=== PATIENT | female | born 1980 | race Caucasian/White ===

== ENCOUNTER 2016-05-12 08:38 | Emergency (ER) | payer SELFPAY ==
[~2016-05-12] VITALS: Ht 165.1 cm; Wt 68.0 kg
[~2016-05-12 08:38] MED LIST: HYDR-971 PO; SULF1TAB24 PO
[2016-05-12 08:40] VITALS: BP 142/82
[2016-05-12] MEDS ORDERED: HYDR-971 PO (08:57)
[2016-05-12] MEDS ORDERED: AMOX875T PO (08:57)
--- NOTE | 2016-05-12 08:58 | PHYS DOC ---
Past Medical History Past Medical History: Anxiety, Depression Past Surgical History: No Surgical History Alcohol Use: None Drug Use: Marijuana Adult General Chief Complaint Chief Complaint: DENTAL PROBLEM HPI HPI Patient is a 35 year old female with history of anxiety who presents with moderate right lower dental pain and abscess that began 3 days ago. Patient states she does not have a dentist. She states she has cavities that had feelings but they fell off. Patient denies any fever or trismus. Review of Systems Review of Systems Constitutional: Denies fever or chills [] Eyes: Denies change in visual acuity, redness, or eye pain [] HENT: Right lower gum dental pain and abscess Integument: Denies rash or skin lesions [] Neurologic: Denies headache, focal weakness or sensory changes [] Endocrine: Denies polyuria or polydipsia [] Allergies Allergies Allergies Coded Allergies Type Severity Reaction Last Updated Verified No Known Drug Allergies 11/19/14 No Physical Exam Physical Exam Constitutional: Well developed, well nourished, no acute distress, non-toxic appearance. [] HENT: Normocephalic, atraumatic, bilateral external ears normal, oropharynx moist, no oral exudates, nose normal. [] Right lower cheek with mild swelling consistent with a dental abscess no redness on the exterior cheek. Right lower gum with mild diffuse swelling, slight erythema noted on the right lower gum. No fluctuance noted on the right lower gum. Tooth #29, 30, 31, are decayed and broken. Eyes: PERRLA, EOMI, conjunctiva normal, no discharge. [] Neck: Normal range of motion, no tenderness, supple, no stridor. [] Skin: Warm, dry, no erythema, no rash. [] Back: No tenderness, no CVA tenderness. [] Extremities: No tenderness, no cyanosis, no clubbing, ROM intact, no edema. [] Neurologic: Alert and oriented X 3, normal motor function, normal sensory function, no focal deficits noted. [] Psychologic: Affect normal, judgement normal, mood normal. [] EKG EKG [] Radiology/Procedures Radiology/Procedures [] Course & Med Decision Making Course & Med Decision Making Pertinent Labs and Imaging studies reviewed. (See chart for details) Patient has right lower gum dental abscess, with no fluctuance from infected dental caries. She was instructed to follow-up with a dentist. Discharged with amoxicillin and hydrocodone. She was provided return precautions and discharged in stable condition. Prince Disclaimer Dragon Disclaimer This electronic medical record was generated, in whole or in part, using a voice recognition dictation system. Departure Departure Impression: Primary Impression: Dental abscess Additional Impressions: Infected dental caries Dentalgia Disposition: HOME, SELF-CARE Condition: STABLE Referrals: NO PCP (PCP) Follow-up with the dentist as soon as possible Patient Instructions: Dental Abscess Additional Instructions: You were seen for dental abscess. Complete your antibiotics. Take the prescribed pain medicines as ordered. Follow-up with the dentist as soon as possible. Come back to the ED if symptoms worsen or you have any concerning symptoms. Scripts Hydrocodone/Apap 5-325 (Oneida 5-325 Tablet)1 Each Tablet1-2 Tab PO Q4-6HRS #12 TAB Prov:MARIO FAUST APRN 05/12/16 Amoxicillin 875 Mg Tablet1 Tab PO BID #20 TAB Prov:MARIO FAUST APRN 05/12/16 Problem Qualifiers MARIO FAUST APRN May 12, 2016 08:58
== END 2016-05-12 09:12 | disposition home or self-care (01) ==
LOC: ER 08:38
DX: K04.7 Periapical abscess without sinus (principal); K02.9 Dental caries, unspecified; F41.9 Anxiety disorder, unspecified; F32.9 Major depressive disorder, single episode, unspecified; F12.10 Cannabis abuse, uncomplicated
CPT/HCPCS: 99283

== ENCOUNTER 2018-05-07 22:38 | Emergency (ER) | payer OTHER ==
[~2018-05-07] VITALS: Ht 165.1 cm; Wt 79.4 kg
[~2018-05-07 22:38] MED LIST changes: +AMOX875T PO; +HYDR-3164 PO; -HYDR-971 PO
--- NOTE | 2018-05-07 23:11 | PHYS DOC ---
Past Medical History Past Medical History: Anxiety, Depression Past Surgical History: No Surgical History Additional Past Surgical Histo: D/C, KIDNEYSTONE REMOVAL Smoking: Cigarettes Alcohol Use: None Drug Use: None, Marijuana Adult General Chief Complaint Chief Complaint: HYPOTENSION HPI HPI Patient is a 37 year old ~20 week female who presents via EMS with low blood pressure. She reports being told she looked pale by staff at [facility] after smoking a cigarette. She reports staff took her vitals and found her systolic BP in the 80s. She says she has felt fatigued this evening and has not been drinking her regular volume of water. She also reports taking Klonipin and 2 unknown muscle relaxants today. She reports no other symptoms. [] Review of Systems Review of Systems Constitutional: Endorses fatigue. Denies fever or chills [] Eyes: Denies change in visual acuity, redness, or eye pain [] HENT: Denies nasal congestion or sore throat [] Respiratory: Denies cough or shortness of breath [] Cardiovascular: No additional information not addressed in HPI [] GI: Denies abdominal pain, nausea, vomiting, bloody stools or diarrhea [] : Denies dysuria or hematuria [] Musculoskeletal: Denies back pain or joint pain [] Integument: Denies rash or skin lesions [] Neurologic: Denies headache, focal weakness or sensory changes [] Endocrine: Denies polyuria or polydipsia [] All other systems were reviewed and found to be within normal limits, except as documented in this note. Current Medications Current Medications Current Medications Medications (Trade) Dose Ordered Sig/Raji Start Time Stop Time Status Last Admin Dose Admin Ceftriaxone Sodium (Rocephin) 1 gm 1X ONCE 05/08/18 00:15 05/08/18 00:16 DC 05/08/18 00:17 1 GM Sodium Chloride 1,000 ml @ 1,000 mls/hr 1X ONCE 05/07/18 23:30 05/08/18 00:29 DC 05/07/18 23:40 1,000 MLS/HR Allergies Allergies Allergies Coded Allergies Type Severity Reaction Last Updated Verified No Known Drug Allergies 11/19/14 No Physical Exam Physical Exam Constitutional: Well developed, well nourished, no acute distress, non-toxic appearance. [] HENT: Normocephalic, atraumatic, bilateral external ears normal, oropharynx moist, no oral exudates, nose normal. [] Eyes: PERRLA, EOMI, conjunctiva normal, no discharge. [] Neck: Normal range of motion, no tenderness, supple, no stridor. [] Cardiovascular:Heart rate regular rhythm, no murmur [] Lungs & Thorax: Bilateral breath sounds clear to auscultation [] Abdomen: Bowel sounds normal, soft,gravid nontender Skin: Warm, dry, no erythema, no rash. [] Back: No tenderness, no CVA tenderness. [] Extremities: No tenderness, no cyanosis, no clubbing, ROM intact, no edema. [] Neurologic: Drowsy, oriented X 3, normal motor function, normal sensory function , no focal deficits noted. [] Psychologic: Affect normal, judgement normal, mood normal. [] Current Patient Data Vital Signs Vital Signs Date Time Temp Pulse Resp B/P (MAP) Pulse Ox O2 Delivery O2 Flow Rate FiO2 05/08/18 01:11 99 20 102/58 (73) 97 Room Air 05/07/18 22:38 97.7 97.7 Lab Values Laboratory Tests Test 05/07/18 23:38 05/07/18 23:44 White Blood Count 15.4 x10^3/uL (4.0-11.0) H Red Blood Count 3.41 x10^6/uL (3.50-5.40) L Hemoglobin 8.7 g/dL (12.0-15.5) L Hematocrit 27.8 % (36.0-47.0) L Mean Corpuscular Volume 82 fL (79-100) Mean Corpuscular Hemoglobin 25 pg (25-35) Mean Corpuscular Hemoglobin Concent 31 g/dL (31-37) Red Cell Distribution Width 21.7 % (11.5-14.5) H Platelet Count 614 x10^3/uL (140-400) H Neutrophils (%) (Auto) 66 % (31-73) Lymphocytes (%) (Auto) 24 % (24-48) Monocytes (%) (Auto) 5 % (0-9) Eosinophils (%) (Auto) 4 % (0-3) H Basophils (%) (Auto) 1 % (0-3) Neutrophils # (Auto) 10.2 x10^3uL (1.8-7.7) H Lymphocytes # (Auto) 3.7 x10^3/uL (1.0-4.8) Monocytes # (Auto) 0.8 x10^3/uL (0.0-1.1) Eosinophils # (Auto) 0.7 x10^3/uL (0.0-0.7) Basophils # (Auto) 0.1 x10^3/uL (0.0-0.2) Platelet Estimate Pending Urine Collection Type U cath Urine Color Yellow Urine Clarity Clear Urine pH 6.0 Urine Specific Temple 1.015 Urine Protein Negative mg/dL (NEG-TRACE) Urine Glucose (UA) Negative mg/dL (NEG) Urine Ketones (Stick) Negative mg/dL (NEG) Urine Blood Negative (NEG) Urine Nitrite Positive (NEG) Urine Bilirubin Negative (NEG) Urine Urobilinogen Dipstick 0.2 mg/dL (0.2 mg/dL) Urine Leukocyte Esterase Moderate (NEG) Urine RBC Occ /HPF (0-2) Urine WBC 11-20 /HPF (0-4) Urine Squamous Epithelial Cells Few /LPF Urine Bacteria Many /HPF (0-FEW) Urine Hyaline Casts Occasional /HPF Urine Mucus Mod /LPF Sodium Level 139 mmol/L (136-145) Potassium Level 3.8 mmol/L (3.5-5.1) Chloride Level 104 mmol/L (98-107) Carbon Dioxide Level 23 mmol/L (21-32) Anion Gap 12 (6-14) Blood Urea Nitrogen 11 mg/dL (7-20) Creatinine 0.5 mg/dL (0.6-1.0) L Estimated GFR (Cockcroft-Gault) 138.1 BUN/Creatinine Ratio 22 (6-20) H Glucose Level 99 mg/dL (70-99) Calcium Level 9.6 mg/dL (8.5-10.1) Total Bilirubin 0.1 mg/dL (0.2-1.0) L Aspartate Amino Transferase (AST) 11 U/L (15-37) L Alanine Aminotransferase (ALT) 14 U/L (14-59) Alkaline Phosphatase 67 U/L (46-116) Total Protein 6.2 g/dL (6.4-8.2) L Albumin 2.4 g/dL (3.4-5.0) L Albumin/Globulin Ratio 0.6 (1.0-1.7) L Urine Opiates Screen Neg (NEG) Urine Methadone Screen Neg (NEG) Urine Barbiturates Neg (NEG) Urine Phencyclidine Screen Neg (NEG) Urine Amphetamine/Methamphetamine Neg (NEG) Urine Benzodiazepines Screen Neg (NEG) Urine Cocaine Screen Neg (NEG) Urine Cannabinoids Screen Neg (NEG) Ethyl Alcohol Level < 10 mg/dL (0-10) Urine Ethyl Alcohol Neg (NEG) POC Urine HCG, Qualitative Hcg positive (Negative) Laboratory Tests 05/07/18 23:38 Laboratory Tests 05/07/18 23:38 EKG EKG [] Radiology/Procedures Radiology/Procedures [] Impressions: wet read u/s tech 17 weeks fht 160s grossly normal Course & Med Decision Making Course & Med Decision Making Pertinent Labs and Imaging studies reviewed. (See chart for details) Pt is a 37 year old ~20 week female with past medical history of anemia presents with fatigue and hypotension. Patient presentation and symptomes most consistent with dehydration vs. medication induced vs. anemia. heart rate 141-156 by doppler. labs look good possible uti, wbc and hb seem appropriate for status. pt bp is stable after iv fluids, 110's after recheck. pt ambulated from the er with a steady gait [] Dragon Disclaimer Dragon Disclaimer This electronic medical record was generated, in whole or in part, using a voice recognition dictation system. Departure Departure Impression: Primary Impression: Hypotension due to drugs Disposition: 01 HOME, SELF-CARE Condition: IMPROVED Referrals: NO PCP (PCP) Scripts Cephalexin (CEPHALEXIN) 500 Mg Tablet 1 TAB PO QID, #40 TAB Prov: KT PERRIN MD 05/08/18 KT PERRIN MD May 07, 2018 23:11
[2018-05-07] MEDS ORDERED: IV NORMAL SALINE 1000ML BAG 1,000 ML IV ONE (23:30)
[2018-05-07 23:51] LABS: BASO # 0.1 x10^3/uL (0.0-0.2); BASO % 1 % (0-3); BILIRUBIN,URINE NEGATIVE (NEG); CLARITY,URINE CLEAR; COLOR,URINE YELLOW; EOS # 0.7 x10^3/uL (0.0-0.7); EOS % 4 % (0-3); HEMATOCRIT 27.8 % (36.0-47.0); HEMOGLOBIN 8.7 g/dL (12.0-15.5); LYMPH # 3.7 x10^3/uL (1.0-4.8); LYMPH % 24 % (24-48); MEAN CORPUSCULAR HEMOGLOBIN 25 pg (25-35); MEAN CORPUSCULAR HGB CONC 31 g/dL (31-37); MEAN CORPUSCULAR VOLUME 82 fL (79-100); MONO # 0.8 x10^3/uL (0.0-1.1); MONO % 5 % (0-9); NEUT # 10.2 x10^3uL (1.8-7.7); NEUT % 66 % (31-73); NITRITE,URINE POSITIVE (NEG); PLATELET COUNT 614 x10^3/uL (140-400); PROTEIN,URINE NEGATIVE (NEG-TRACE); RED BLOOD COUNT 3.41 x10^6/uL (3.50-5.40); RED CELL DISTRIBUTION WIDTH 21.7 % (11.5-14.5); UROBILINOGEN,URINE 0.2 mg/dL (0.2 mg/dL); WHITE BLOOD COUNT 15.4 x10^3/uL (4.0-11.0)
[2018-05-07 23:55] LABS: BACTERIA,URINE MANY /HPF (0-FEW); RBC,URINE OCC /HPF (0-2)
[2018-05-07 23:56] LABS: HYALINE CASTS, URINE OCCASIONAL /HPF; SQUAMOUS EPITHELIAL CELL,UR FEW /LPF
[2018-05-07 23:59] LABS: BARBITURATES NEG (NEG); BENZODIAZEPINES NEG (NEG); CANNABINOIDS NEG (NEG); COCAINE NEG (NEG); METHADONE NEG (NEG); OPIATES NEG (NEG); PHENCYCLIDINE NEG (NEG)
[2018-05-08 00:08] LABS: CALCIUM 9.6 mg/dL (8.5-10.1); CREATININE 0.5 mg/dL (0.6-1.0); GFR 138.1; POTASSIUM 3.8 mmol/L (3.5-5.1)
[2018-05-08 00:11] LABS: ALBUMIN 2.4 g/dL (3.4-5.0); ALBUMIN/GLOBULIN RATIO 0.6 (1.0-1.7); TOTAL BILIRUBIN 0.1 mg/dL (0.2-1.0); TOTAL PROTEIN 6.2 g/dL (6.4-8.2)
[2018-05-08 00:14] LABS: AMPHETAMINE/METHAMPHETAMINE NEG (NEG)
[2018-05-08] MEDS ORDERED: cefTRIAXone IV Push 1 GM VIAL. IVP ONE (00:15)
[2018-05-08] MEDS ORDERED: CEPH500T PO (00:16)
[2018-05-08 01:11] VITALS: BP 102/58
--- NOTE | 2018-05-08 02:51 | RAD ---
CLINICAL HISTORY: Ultrasound, evaluate fetus, viability. COMPARISON: None available. TECHNIQUE: Transabdominal ultrasound of the uterus was performed. FINDINGS: There is a single live fetus in variable position. The placenta is anterior without placenta previa. The amniotic fluid is normal for gestational stage. The cardiac rate is 160 bpm. movement was identified. measurements are: BPD - 3.21 cm = 16 weeks 0 days HC - 12.94 cm = 16 weeks 4 days AC - 12 cm =17 weeks 5 day FL - 2.47 cm = 17 weeks 3 days The gestational size based on these measurements is 17 weeks 0 days. The estimated weight is 195+/- 29 gm. The estimated date of delivery is 10/16/2018. IMPRESSION: 1. Single live intrauterine gestation with a gestational age of 17 weeks 0 days. Electronically signed by: Osito Nails MD (05/08/2018 2:48 AM) [facility]
[2018-05-08 04:23] LABS: ANISOCYTOSIS MOD; PLT ESTIMATE INCREASED (ADEQUATE); POLYCHROMASIA SLIGHT
[2018-05-08 04:24] LABS: TARGET CELLS OCC
== END 2018-05-08 01:38 | disposition home or self-care (01) ==
LOC: ER 22:38
DX: I95.2 Hypotension due to drugs (principal); F41.9 Anxiety disorder, unspecified; F32.9 Major depressive disorder, single episode, unspecified; F17.210 Nicotine dependence, cigarettes, uncomplicated
CPT/HCPCS: 36415; 76815; 80053; 80307; 81001; 81025; 85025; 87086; 96361; 96374; 99284; G0480; J0696; J7030; 87186

== ENCOUNTER 2018-11-16 13:00 | Emergency (ER) | payer MEDICAID, OTHER ==
[~2018-11-16] VITALS: Ht 165.1 cm; Wt 81.6 kg
[~2018-11-16 13:00] MED LIST changes: +CEPH500T PO
[2018-11-16 13:43] VITALS: BP 144/77
[2018-11-16] MEDS ORDERED: CEPH500T PO (14:36)
[2018-11-16] MEDS ORDERED: HYDR-3164 PO (14:36)
[2018-11-16] MEDS ORDERED: SULF1TAB24 PO (14:36)
--- NOTE | 2018-11-16 14:36 | PHYS DOC ---
Past Medical History Past Medical History: Anxiety, Depression Past Surgical History: No Surgical History Additional Past Surgical Histo: D/C, KIDNEYSTONE REMOVAL Alcohol Use: None Drug Use: None, Marijuana Adult General Chief Complaint Chief Complaint: INSECT BITE HPI HPI Patient is a 38 year old female with history of anxiety, depression, abscesses, who presents to the ED today with an abscess on the left breast that began a week ago. Patient states she's been using warm compresses to the area. She states she thought it was an insect bite but has no recollection of any insects biting her breast. Denies being on any antibiotics in the last 90 days. Review of Systems Review of Systems Constitutional: Denies fever or chills [] Musculoskeletal: Denies back pain or joint pain [] Integument: Reports left breast abscess Neurologic: Denies headache, focal weakness or sensory changes [] All other systems were reviewed and found to be within normal limits, except as documented in this note. Allergies Allergies Allergies Coded Allergies Type Severity Reaction Last Updated Verified No Known Drug Allergies 11/19/14 No Physical Exam Physical Exam Constitutional: Well developed, well nourished, no acute distress, non-toxic appearance. [] Skin: Warm, dry, left breast at approximately 12 o'clock position with an area o f cellulitis approximately 8 x 8 cm, the center of this region has firmness approximately 3 x 3 cm, there is slight fluctuance to this forearm though patient will not let me touch the area due to pain. Nipple is not involved. There is no dimpling to the breast. There is no drainage from the breast. Back: No tenderness, no CVA tenderness. [] Extremities: No tenderness, no cyanosis, no clubbing, ROM intact, no edema. [] Neurologic: Alert and oriented X 3, normal motor function, normal sensory function, no focal deficits noted. [] Psychologic: Affect normal, judgement normal, mood normal. [] Current Patient Data Vital Signs Vital Signs Date Time Temp Pulse Resp B/P (MAP) Pulse Ox O2 Delivery O2 Flow Rate FiO2 11/16/18 13:43 98.0 100 18 144/77 (99) 97 Room Air 98.0 EKG EKG [] Radiology/Procedures Radiology/Procedures [] Course & Med Decision Making Course & Med Decision Making Pertinent Labs and Imaging studies reviewed. (See chart for details) This is a 38-year-old female patient with an abscess on the left breast, this is a 38-year-old female patient with an abscess on the left breast, I offered to drain it, patient declined. She is requesting antibiotics. She was given prescription for Bactrim and cephalexin, warm compresses recommended. Follow up with an [facility] in 1-2 weeks to ensure the infection has cleared up and there is no underlying mass or disease process. Dragon Disclaimer Dragon Disclaimer This electronic medical record was generated, in whole or in part, using a voice recognition dictation system. Departure Departure Impression: Primary Impression: Abscess of left breast Additional Impression: Cellulitis of breast Disposition: HOME, SELF-CARE Condition: STABLE Referrals: VANESSA NORIEGA JR, MD (PCP) follow up in on one to two weeks Patient Instructions: Abscess Additional Instructions: You were seen for an abscess with cellulitis of the left breast, we put you on antibiotics, ensure you complete them. Please follow-up with your primary care doctor in the next 1-2 weeks or the [facility] to be sure this infection is cleared out and there is no underlying disease process. Apply warm compresses to the breast twice a day. Scripts Hydrocodone/Apap 5-325 (NORCO 5-325 TABLET) 1 Each Tablet 1 TAB PO Q6-8HRS PRN for PAIN, #8 TAB Prov: MARIO FAUST APRN 11/16/18 Sulfamethoxazole/Trimethoprim (BACTRIM DS TABLET) 1 Each Tablet 1 TAB PO BID, #20 TAB Prov: MARIO FAUST APRN 11/16/18 Cephalexin (CEPHALEXIN) 500 Mg Tablet 1 TAB PO QID, #40 TAB Prov: MARIO FAUST APRN 11/16/18 Problem Qualifiers MARIO FAUST APRN Nov 16, 2018 14:36
== END 2018-11-16 14:46 | disposition home or self-care (01) ==
LOC: ER 13:00
DX: N61.1 Abscess of the breast and nipple (principal)
CPT/HCPCS: 99283

== ENCOUNTER 2019-04-17 16:07 | Emergency (ER) | payer MEDICAID ==
[~2019-04-17] VITALS: Ht 165.1 cm; Wt 81.0 kg
[2019-04-17 17:33] VITALS: BP 128/68
[2019-04-17] MEDS ORDERED: IBUP-1027 PO (17:55)
--- NOTE | 2019-04-17 17:56 | PHYS DOC ---
Past Medical History Past Medical History: Anxiety, Depression Past Surgical History: No Surgical History Additional Past Surgical Histo: D/C, KIDNEYSTONE REMOVAL Smoking Status: Current Every Day Smoker Alcohol Use: None Drug Use: None, Marijuana Adult General Chief Complaint Chief Complaint: HAND PROBLEM [facility] Patient is a 38 year old female who presents with pain and cramping in her R hand that started 4 days ago after she was helping move a friend and was moving a lot of clothes. The patient also states that she has had mild cramping in L hand. The patient has tried lidocaine cream, ibuprofen, and tylenol which she states has not helped. Denies additional symptoms. Complete ROS were reviewed and found to be within normal limits, except as documented in the [facility] Allergies Allergies Allergies Coded Allergies Type Severity Reaction Last Updated Verified No Known Drug Allergies 11/19/14 No Physical Exam Physical Exam Constitutional: Well developed, well nourished, no acute distress, non-toxic appearance. [] HENT: Normocephalic, atraumatic, bilateral external ears normal, oropharynx moist, no oral exudates, nose normal. [] Eyes: PERRLA, EOMI, conjunctiva normal, no discharge. [] Neck: Normal range of motion, no tenderness, supple, no stridor. [] Skin: Warm, dry, no erythema, no rash. [] Back: No tenderness, no CVA tenderness. [] Extremities: Tenderness on movement in R 1st digit, + po test. Neurologic: Alert and oriented X 3, normal motor function, normal sensory function, no focal deficits noted. [] Psychologic: Affect normal, judgement normal, mood normal. [] EKG EKG [] Radiology/Procedures Radiology/Procedures [] Course & Med Decision Making Course & Med Decision Making Pertinent Labs and Imaging studies reviewed. (See chart for details) The patient appears to have De quevein's Tenosynovitis from repetitive movements while helping friends move. The patient was place in thumb spica velcro splint and I will prescribe NSAIDs. Dragon Disclaimer Dragon Disclaimer This electronic medical record was generated, in whole or in part, using a voice recognition dictation system. Departure Departure Impression: Primary Impression: De Quervain's disease (radial styloid tenosynovitis) Disposition: 01 HOME, SELF-CARE Condition: STABLE Referrals: VANESSA NORIEGA JR, MD (PCP) Patient Instructions: De Quervain's Disease, De Quervain's Tenosynovitis-[facility]Med Additional Instructions: Thank you for visiting [facility]. We appreciate you trusting us with your care. If any additional problems come up don't hesitate to return to visit us. Please follow up with your primary care provider so they can plan additional care if needed and know about the problem that you had. If symptoms worsen come back to the Emergency Department. Any concerning symptoms that start such as chest pain, shortness of air, weakness or numbness on one side of the body, running high fevers or any other concerning symptoms return to the ER. Scripts Ibuprofen (IBUPROFEN) 400 Mg Tablet 400 MG PO PRN Q6HRS PRN for INFLAMMATION for 7 Days, #28 TAB Prov: PREETHI PERRY APRN 04/17/19 PREETHI PERRY APRN Apr 17, 2019 17:56
== END 2019-04-17 18:02 | disposition home or self-care (01) ==
LOC: ER 16:07
DX: M65.4 Radial styloid tenosynovitis [de Quervain] (principal); M79.641 Pain in right hand; F41.9 Anxiety disorder, unspecified; F32.9 Major depressive disorder, single episode, unspecified; F12.90 Cannabis use, unspecified, uncomplicated; F17.200 Nicotine dependence, unspecified, uncomplicated; Z98.890 Other specified postprocedural states
CPT/HCPCS: 29125; 99283

== ENCOUNTER 2019-06-02 04:33 | Emergency (ER) | payer MEDICAID ==
[~2019-06-02] VITALS: Ht 165.1 cm; Wt 83.9 kg
[~2019-06-02 04:33] MED LIST changes: +IBUP-1027 PO
--- NOTE | 2019-06-02 05:31 | PHYS DOC ---
Past Medical History Past Medical History: Anxiety, Bipolar, Depression Past Surgical History: No Surgical History Additional Past Surgical Histo: D/C, KIDNEYSTONE REMOVAL Smoking Status: Current Every Day Smoker Alcohol Use: None Drug Use: None, Marijuana Adult General Chief Complaint Chief Complaint: ANKLE PROBLEM HPI HPI 38-year-old female presents to the emergency department complaints of right ankle pain. Patient states she was walking down stairs missed the last step inverting her ankle. She states she denies any pop however is unable to tolerate weight at that time. Patient complains of pain. She denies any nausea, chest pain, abdominal pain, headache, visual change. Patient has no past medical history. Unable to bear weight as previously described. Nothing makes her pain better. Review of Systems Review of Systems Constitutional: Denies fever or chills [] Cardiovascular: No additional information not addressed in HPI [] GI: Denies abdominal pain, nausea, vomiting, bloody stools or diarrhea [] Musculoskeletal: right ankle pain, swelling Integument: Denies rash or skin lesions [] Neurologic: Denies headache, focal weakness or sensory changes [] All other systems were reviewed and found to be within normal limits, except as documented in this note. Current Medications Current Medications Current Medications Medications (Trade) Dose Ordered Sig/Raji Start Time Stop Time Status Last Admin Dose Admin Morphine Sulfate (Morphine Sulfate) 4 mg 1X ONCE 06/02/19 05:45 06/02/19 05:46 DC Ondansetron HCl (Zofran) 4 mg 1X ONCE 06/02/19 05:45 06/02/19 05:46 DC Allergies Allergies Allergies Coded Allergies Type Severity Reaction Last Updated Verified No Known Drug Allergies 11/19/14 No Physical Exam Physical Exam Constitutional: Well developed, well nourished, mild distress 2/2 pain, non- toxic appearance. [] HENT: Normocephalic, atraumatic, bilateral external ears normal, oropharynx moist, no oral exudates, nose normal. [] Cardiovascular:Heart rate regular rhythm, no murmur [] Lungs & Thorax: Bilateral breath sounds clear to auscultation [] Skin: Warm, dry, no erythema, no rash. [] Extremities: TTP right ankle, obvious swelling appreciated, + edema [] Neurologic: Alert and oriented X 3, no focal deficits noted. [] Psychologic: Affect normal, judgement normal, mood normal. [] Current Patient Data Vital Signs Vital Signs Date Time Temp Pulse Resp B/P (MAP) Pulse Ox O2 Delivery O2 Flow Rate FiO2 06/02/19 04:49 98.1 115 16 149/108 (122) 96 Room Air 98.1 EKG EKG [] Radiology/Procedures Radiology/Procedures [facility] [address] [place] [address] IMAGING REPORT Signed PATIENT: PHYLLIS MONTOYA SACCOUNT: [id number] : 1980 LOCATION: ER AGE: 38 SEX: F EXAM STATUS: REG ER ORD. PHYSICIAN: MELANIE SHAIKH MD REASON: inverted ankle with swelling, obvious deformity, UNABLE TO FLEX FOOT. PROCEDURE: ANKLE RIGHT 3V ANKLE RIGHT 3V DATE: 06/02/2019 5:31 AM INDICATION: Twisted ankle, pain and swelling COMPARISON: None. FINDINGS: Bones: There is no evidence of acute fracture or dislocation. Joints: The ankle mortise is congruent. No widening of the distal tibiofibular syndesmosis. Ankle joint effusion. Miscellaneous: Lateral soft tissue swelling IMPRESSION: No acute fracture. Electronically signed by: Saulo Moya MD (06/02/2019 5:53 AM) [id number] DICTATED and SIGNED BY: SAULO MOYA MD DATE: 06/02/19 0553 [] Course & Med Decision Making Course & Med Decision Making Pertinent Labs and Imaging studies reviewed. (See chart for details) []38-year-old female presents to the emergency department complaints of right ankle pain. Patient states she was walking down stairs missed the last step inverting her ankle. She states she denies any pop however is unable to tolerate weight at that time. Patient complains of pain. She denies any nausea, chest pain, abdominal pain, headache, visual change. Patient has no past medical history. Unable to bear weight as previously described. Nothing makes her pain better. No acute fracture identified Recommend follow up with PCP/ortho as outpatient [place] rx provided Vince and Crutches Prince Disclaimer Prince Disclaimer This electronic medical record was generated, in whole or in part, using a voice recognition dictation system. Departure Departure Impression: Primary Impression: High ankle sprain of right lower extremity Disposition: HOME, SELF-CARE Condition: STABLE Referrals: VANESSA NORIEGA JR, MD (PCP) Patient Instructions: Ankle Sprain Additional Instructions: Recommend Nroco as needed Recommend Motrin as needed Vince/Crutches provided Ice and elevation Follow up with PCP as outpatient Scripts Hydrocodone/Apap 5-325 (NORCO 5-325 TABLET) 1 Each Tablet 1 TAB PO PRN Q6HRS PRN for PAIN, #10 TAB 0 Refills Prov: MELANIE SHAIKH MD 06/02/19 Ibuprofen (Ibuprofen) 800 Mg Tablet 800 MG PO TID PRN for PAIN, #30 TAB Prov: MELANIE SHAIKH MD 06/02/19 Problem Qualifiers Primary Impression: High ankle sprain of right lower extremity Encounter type: initial encounter Qualified Codes: S93.431A - Sprain of tibiofibular ligament of right ankle, initial encounter MELANIE SHAIKH MD Jun 02, 2019 05:31
[2019-06-02] MEDS ORDERED: ONDANSETRON PF 4 MG/2 ML VIAL. IVP ONE (05:45)
[2019-06-02] MEDS ORDERED: MORPHINE SULFATE 4 MG/ML VIAL. IV ONE (05:45)
--- NOTE | 2019-06-02 05:56 | RAD ---
ANKLE RIGHT 3V DATE: 06/02/2019 5:31 AM INDICATION: Twisted ankle, pain and swelling COMPARISON: None. FINDINGS: Bones: There is no evidence of acute fracture or dislocation. Joints: The ankle mortise is congruent. No widening of the distal tibiofibular syndesmosis. Ankle joint effusion. Miscellaneous: Lateral soft tissue swelling IMPRESSION: No acute fracture. Electronically signed by: Rod Moya MD (06/02/2019 5:53 AM) [id number]
[2019-06-02 05:57] VITALS: BP 131/91
[2019-06-02] MEDS ORDERED: IBUP800T19 PO (06:07)
[2019-06-02] MEDS ORDERED: HYDR-3164 PO (06:07)
== END 2019-06-02 06:17 | disposition home or self-care (01) ==
LOC: ER 04:33
DX: S93.431A Sprain of tibiofibular ligament of right ankle, initial encounter (principal); F31.9 Bipolar disorder, unspecified; F17.200 Nicotine dependence, unspecified, uncomplicated; W10.8XXA Fall (on) (from) other stairs and steps, initial encounter; Y93.01 Activity, walking, marching and hiking; Y92.89 Other specified places as the place of occurrence of the external cause; Y99.8 Other external cause status
CPT/HCPCS: 73610; 96374; 96375; 99284; J2270; J2405

== ENCOUNTER 2019-08-02 14:51 | Emergency (ER) | payer MEDICAID ==
[~2019-08-02] VITALS: Ht 165.1 cm; Wt 83.6 kg
[~2019-08-02 14:51] MED LIST changes: +IBUP800T19 PO
[2019-08-02] MEDS ORDERED: HYDROcodone/APAP 5/325MG 1 TAB TABLET PO ONE (15:15)
--- NOTE | 2019-08-02 15:23 | PHYS DOC ---
Past Medical History Past Medical History: Anxiety, Bipolar, Depression Past Surgical History: Tubal ligation, Other Additional Past Surgical Histo: D/C, KIDNEYSTONE REMOVAL Smoking Status: Current Every Day Smoker Additional Information: 03/14 ppd Alcohol Use: None Drug Use: None, Marijuana General Adult EDM: Chief Complaint: WRIST PAIN HPI: HPI: Patient is a 38 year old female who presents with with 2 days of left hand, wrist and knee swelling with stabbing pain. Denies injury. She states about month prior her right wrist swelled up and this is how it felt also. She states she has been taking naproxen and tylenol at home without relief. Denies numbness or tingling, skin color or temperature change in limb. Rates pain a 11/20. Review of Systems: Review of Systems: Musculoskeletal: Denies back pain. Left wrist and knee joint pain. [] Heart Score: Risk Factors: Risk Factors: DM, Current or recent (<one month) smoker, HTN, HLP, family history of CAD, obesity. Risk Scores: Score 0 - 3: 2.5% MACE over next 6 weeks - Discharge Home Score 4 - 6: 20.3% MACE over next 6 weeks - Admit for Clinical Observation Score 7 - 10: 72.7% MACE over next 6 weeks - Early Invasive Strategies Current Medications: Current Medications Medications (Trade) Dose Ordered Sig/Raji Start Time Stop Time Status Last Admin Dose Admin Acetaminophen/ Hydrocodone Bitart (Lortab 5/325) 1 tab 1X ONCE 08/02/19 15:15 08/02/19 15:16 DC Allergies: Allergies: Allergies Coded Allergies Type Severity Reaction Last Updated Verified No Known Drug Allergies 08/02/19 No Physical Exam: PE: Constitutional: Well developed, well nourished, no acute distress, non-toxic appearance. [] HENT: Normocephalic, atraumatic, bilateral external ears normal, oropharynx moist, no oral exudates, nose normal. [] Eyes: PERRLA, EOMI, conjunctiva normal, no discharge. [] Neck: Normal range of motion, no tenderness, supple, no stridor. [] Cardiovascular:Heart rate regular rhythm, no murmur [] Lungs & Thorax: Bilateral breath sounds clear to auscultation [] Abdomen: Bowel sounds normal, soft, no tenderness, no masses, no pulsatile masses. [] Skin: Warm, dry, no erythema, no rash. [] Back: No tenderness, no CVA tenderness. [] Extremities: Left lateral wrist into hand tenderness, no cyanosis, no clubbing, ROM intact, Left hand and knee 2-3+ edema. [] Neurologic: Alert and oriented X 3, normal motor function, normal sensory function, no focal deficits noted. [] Psychologic: Affect normal, judgement normal, mood normal. [] Current Patient Data: Vital Signs: Vital Signs Date Time Temp Pulse Resp B/P (MAP) Pulse Ox O2 Delivery O2 Flow Rate FiO2 08/02/19 14:55 97.9 102 16 148/82 (104) 99 Room Air 97.9 EKG: EKG: [] Radiology/Procedures: Radiology/Procedures: [] Impression: [address] [address] IMAGING REPORT Signed PATIENT: PHYLLIS MONTOYA: [id number] : 1980 LOCATION: ER AGE: 38 SEX: F EXAM STATUS: REG ER ORD. PHYSICIAN: LINDSEY GORDON APRN REASON: pain and swelling left joints, no known injury PROCEDURE: HAND LEFT 3V Exam: Left hand 3 views INDICATION: Pain and swelling left joints TECHNIQUE: Frontal, lateral and oblique views of the left and Comparisons: None FINDINGS: Mild soft tissue swelling overlying the MCP joints. No acute fractures. Joint spaces are well-maintained. Bone mineralization is normal. IMPRESSION: Mild soft tissue swelling overlying the MCP joints without underlying acute osseous abnormality identified. Electronically signed by: Anselmo Roy MD (08/02/2019 3:26 PM) [id number] DICTATED and SIGNED BY: ANSELMO ROY MD DATE: 08/02/[address] [address] IMAGING REPORT Signed PATIENT: PHYLLIS MONTOYA: [id number] : 1980 LOCATION: ER AGE: 38 SEX: F EXAM STATUS: REG ER ORD. PHYSICIAN: LINDSEY GORDON APRN REASON: pain and swelling left joints, no known injury PROCEDURE: KNEE LEFT 4V Exam: Left knee 3 views INDICATION: Pain and swelling TECHNIQUE: Frontal, lateral and oblique views of the left knee Comparisons: None FINDINGS: Bone mineralization is normal. No acute or healed fractures. Mild suprapatellar effusion. Joint spaces are well-maintained. IMPRESSION: Mild suprapatellar effusion without underlying osseous abnormality identified. Electronically signed by: Anselmo Roy MD (08/02/2019 3:32 PM) [id number] DICTATED and SIGNED BY: ANSELMO ROY MD DATE: 08/02/19 1536 [facility] [address] [place] [address] IMAGING REPORT Signed PATIENT: PHYLLIS MONTOYA SACCOUNT: [id number] : 1980 LOCATION: ER AGE: 38 SEX: F EXAM STATUS: REG ER ORD. PHYSICIAN: LINDSEY GORDON APRN REASON: pain and swelling left joints, no known injury PROCEDURE: WRIST 3V LEFT Exam: Left wrist 3 views INDICATION: Pain and swelling left joint TECHNIQUE: Frontal, lateral and oblique views of the left wrist Comparisons: None FINDINGS: Bone mineralization is normal. No acute or healed fractures. Mild soft tissue swelling overlying the dorsal aspect of the wrist and metacarpals. Joint space is well-maintained. IMPRESSION: Soft tissue swelling along the dorsal aspect of the hand and wrist. No underlying osseous abnormality identified. Electronically signed by: Anselmo Roy MD (08/02/2019 3:29 PM) [id number] DICTATED and SIGNED BY: ANSELMO ROY MD DATE: 08/02/19 1527 Course & Med Decision Making: Course & Med Decision Making Pertinent Labs and Imaging studies reviewed. (See chart for details) Left hand, wrist and knee joint swelling and pain. No redness. No laxity to any joint. Radial and pedal pulse present. No bruising or deformity. Skin pink warm and dry. Cap refill less than 3 seconds. [] Dragon Disclaimer: Dragany Disclaimer: This electronic medical record was generated, in whole or in part, using a voice recognition dictation system. Departure Departure Impression: Primary Impression: Joint swelling Disposition: 01 HOME, SELF-CARE Condition: STABLE Referrals: VANESSA NORIEGA JR, MD (PCP) Patient Instructions: Arthritis, Nonspecific Additional Instructions: Follow up with primary care as soon as possible. Take medications as prescribed and with food. Drink plenty of fluids. Scripts Ibuprofen (IBUPROFEN) 600 Mg Tablet 600 MG PO PRN Q6HRS PRN for INFLAMMATION, #20 TAB Prov: LINDSEY GORDON APRN 08/02/19 Hydrocodone/Apap 5-325 (NORCO 5-325 TABLET) 1 Each Tablet 1 TAB PO PRN Q6HRS PRN for PAIN, #12 TAB 0 Refills Prov: LINDSEY GORDON APRN 08/02/19 Methylprednisolone (MEDROL) 4 Mg Tab.ds.pk 1 PKG PO UD, #1 PKG Prov: LINDSEY GORDON APRN 08/02/19 LINDSEY GORDON APRN August 02, 2019 15:23
--- NOTE | 2019-08-02 15:29 | RAD ---
Exam: Left hand 3 views INDICATION: Pain and swelling left joints TECHNIQUE: Frontal, lateral and oblique views of the left and Comparisons: None FINDINGS: Mild soft tissue swelling overlying the MCP joints. No acute fractures. Joint spaces are well-maintained. Bone mineralization is normal. IMPRESSION: Mild soft tissue swelling overlying the MCP joints without underlying acute osseous abnormality identified. Electronically signed by: Anselmo Alfredo MD (08/02/2019 3:26 PM) [id number]
--- NOTE | 2019-08-02 15:32 | RAD ---
Exam: Left wrist 3 views INDICATION: Pain and swelling left joint TECHNIQUE: Frontal, lateral and oblique views of the left wrist Comparisons: None FINDINGS: Bone mineralization is normal. No acute or healed fractures. Mild soft tissue swelling overlying the dorsal aspect of the wrist and metacarpals. Joint space is well-maintained. IMPRESSION: Soft tissue swelling along the dorsal aspect of the hand and wrist. No underlying osseous abnormality identified. Electronically signed by: Anselmo Alfredo MD (08/02/2019 3:29 PM) [id number]
--- NOTE | 2019-08-02 15:34 | RAD ---
Exam: Left knee 3 views INDICATION: Pain and swelling TECHNIQUE: Frontal, lateral and oblique views of the left knee Comparisons: None FINDINGS: Bone mineralization is normal. No acute or healed fractures. Mild suprapatellar effusion. Joint spaces are well-maintained. IMPRESSION: Mild suprapatellar effusion without underlying osseous abnormality identified. Electronically signed by: Anselmo Alfredo MD (08/02/2019 3:32 PM) [id number]
[2019-08-02 15:44] LABS: BASO # 0.2 x10^3/uL (0.0-0.2); BASO % 1 % (0-3); EOS # 0.3 x10^3/uL (0.0-0.7); EOS % 2 % (0-3); HEMATOCRIT 35.3 % (36.0-47.0); HEMOGLOBIN 11.5 g/dL (12.0-15.5); LYMPH % 14 % (24-48); MEAN CORPUSCULAR HEMOGLOBIN 26 pg (25-35); MEAN CORPUSCULAR HGB CONC 33 g/dL (31-37); MEAN CORPUSCULAR VOLUME 80 fL (79-100); MONO # 0.6 x10^3/uL (0.0-1.1); MONO % 5 % (0-9); NEUT # 10.8 x10^3/uL (1.8-7.7); NEUT % 78 % (31-73); PLATELET COUNT 712 x10^3/uL (140-400); RED CELL DISTRIBUTION WIDTH 17.6 % (11.5-14.5); WHITE BLOOD COUNT 13.9 x10^3/uL (4.0-11.0)
[2019-08-02 15:52] LABS: BILIRUBIN,URINE NEGATIVE (NEG); CLARITY,URINE CLEAR; COLOR,URINE YELLOW; NITRITE,URINE NEGATIVE (NEG); PH,URINE 6.5 (<5.0-8.0); PROTEIN,URINE NEGATIVE (NEG-TRACE); UROBILINOGEN,URINE 0.2 mg/dL (0.2 mg/dL)
[2019-08-02 15:54] LABS: CALCIUM 9.4 mg/dL (8.5-10.1); CREATININE 0.6 mg/dL (0.6-1.0); GFR 111.3; POTASSIUM 4.2 mmol/L (3.5-5.1)
[2019-08-02 15:57] LABS: BARBITURATES NEG (NEG); BENZODIAZEPINES POS (NEG); CANNABINOIDS POS (NEG); COCAINE NEG (NEG); METHADONE NEG (NEG); OPIATES NEG (NEG); PHENCYCLIDINE NEG (NEG)
[2019-08-02 15:59] LABS: AMPHETAMINE/METHAMPHETAMINE NEG (NEG)
[2019-08-02 16:06] LABS: ALBUMIN 3.2 g/dL (3.4-5.0); ALBUMIN/GLOBULIN RATIO 0.7 (1.0-1.7); C-REACTIVE PROTEIN 32.8 mg/L (0-3.3); TOTAL BILIRUBIN 0.1 mg/dL (0.2-1.0); TOTAL PROTEIN 7.6 g/dL (6.4-8.2)
[2019-08-02 16:07] LABS: BACTERIA,URINE FEW /HPF (0-FEW); RBC,URINE 0 /HPF (0-2); SQUAMOUS EPITHELIAL CELL,UR MOD /LPF
[2019-08-02 16:37] VITALS: BP 124/73
[2019-08-02] MEDS ORDERED: METH4TAB2 PO (16:56)
[2019-08-02] MEDS ORDERED: IBUP-1007 PO (16:56)
[2019-08-02] MEDS ORDERED: HYDR-3164 PO (16:56)
== END 2019-08-02 17:09 | disposition home or self-care (01) ==
LOC: ER 14:51
DX: M79.642 Pain in left hand (principal); M25.532 Pain in left wrist; M25.562 Pain in left knee; R22.42 Localized swelling, mass and lump, left lower limb; F31.9 Bipolar disorder, unspecified; F17.200 Nicotine dependence, unspecified, uncomplicated
CPT/HCPCS: 36415; 73110; 73130; 73564; 80053; 80307; 81001; 84550; 85025; 85651; 86038; 86140; 87086; 99284

== ENCOUNTER → 2020-01-27 | Emergency (ER) | payer MEDICAID ==
[~2020-01-27] MED LIST changes: +IBUP-1007 PO; +METH4TAB2 PO
== END ==
LOC: ER 17:11
DX: M54.9 Dorsalgia, unspecified (principal); Z53.21 Procedure and treatment not carried out due to patient leaving prior to being seen by health care provider